=== PATIENT | male | born 1980 | race Caucasian/White ===

== ENCOUNTER 2016-10-01 12:22 | Emergency (ER) | payer OTHER ==
[~2016-10-01] VITALS: Ht 170.2 cm; Wt 83.9 kg
--- NOTE | ~2016-10-01 | EKG ---
[address] [address] ELECTROCARDIOGRAM REPORT Name: LISA CUELLAROBERTO Room #: DEP Sandy#: [id number] Admission: 10/01/16 Attend Phys: Discharge: 10/01/16 Date of : 84 Report #: [id number] THIS REPORT FOR: //name// 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
--- NOTE | ~2016-10-01 | EKG ---
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
[2016-10-01 14:31] LABS: ABSOLUTE NEUTROPHILS 4.2 thou/uL (1.4-8.2); BASOPHILS 0.8 % (0.0-2.0); EOSINOPHILS 0.3 % (0.0-3.0); HEMATOCRIT 44.1 % (42.0-52.0); HEMOGLOBIN 15.3 gm/dL (14.0-18.0); LYMPHOCYTES 16.1 % (24.0-44.0); MCH 31.3 pg (26.0-34.0); MCHC 34.7 g/dL (28.0-37.0); MCV 90.1 fL (80.0-100.0); MONOCYTES 7.4 % (1.0-8.0); PLATELET COUNT 193 thou/uL (150-400); POLYS 75.4 % (36.0-66.0); RDW 13.3 % (10.5-14.5); WBC 5.5 thou/uL (4.0-11.0)
[2016-10-01 14:33] LABS: MANUAL DIFF NO
[2016-10-01 14:42] LABS: CALCIUM 8.7 mg/dL (8.5-10.1); CREATININE 0.8 mg/dL (0.7-1.3); POTASSIUM 3.4 mmol/L (3.5-5.1)
[2016-10-01] MEDS ORDERED: ATIVAN1 MG PO (15:47)
[2016-10-01 16:05] VITALS: BP 152/89
== END 2016-10-01 15:49 | disposition home or self-care (01) ==
LOC: ER 12:22
PROVIDERS: Emergency Medicine
DX: F10.239 Alcohol dependence with withdrawal, unspecified (principal); Y90.5 Blood alcohol level of 100-119 mg/100 ml